=== PATIENT | male | born 1960 | race Caucasian/White ===

== ENCOUNTER 2016-08-11 13:09 | Emergency (ER) | payer SELFPAY ==
[~2016-08-11] VITALS: Ht 175.3 cm; Wt 59.4 kg
[~2016-08-11 13:09] MED LIST: HYDR-2666 PO; LISI-338 PO; NICO2GUM3 BC
[2016-08-11] MEDS ORDERED: FENTANYL PF 100 MCG/2 ML VIAL. IV PRN (14:45)
[2016-08-11] MEDS ORDERED: DIPHTH,PERTUSS(ACELL),TET TOX 0.5 ML DISP.SYRIN. VAX IM ONE (14:45)
--- NOTE | 2016-08-11 14:55 | ED.ADGEN ---
Past Medical History Past Medical History: CVA, Hypertension Past Surgical History: Other Additional Past Surgical Histo: left jaw x3 Alcohol Use: Heavy Drug Use: None Adult General Chief Complaint Chief Complaint: MECHANICAL FALL HPI HPI Patient is a 55 year old and, history of alcohol abuse, hypertension, CVA, who presents emergency Department with a complaint of right shoulder pain after a fall. Patient states that he was drinking last night, and he slept and slid down about 6 stairs, he states that he fell forward while walking up the stairs , and landed on his right shoulder. He denies loss of consciousness, denies striking his head, although he is noted to have an abrasion on the right side of his head, that he cannot otherwise explain. Patient denies any drugs, states that he drinks gin and other alcohol daily. He denies any other injuries or complaints. Noted to have significant swelling of the right upper extremity, unable to move at the shoulder. Denies any weakness numbness or tingling, any nausea or vomiting, any chest pain. No shortness of breath. No blurred vision. Patient placed in a c-collar per Nexus criteria, patient has odor of alcohol, and admits to drinking today. Review of Systems Review of Systems Constitutional: Denies fever or chills. [] Eyes: Denies change in visual acuity. [] HENT: Denies nasal congestion or sore throat. [] Respiratory: Denies cough or shortness of breath. [] Cardiovascular: Denies chest pain or edema. [] GI: Denies abdominal pain, nausea, vomiting, bloody stools or diarrhea. [] : Denies dysuria. [] Musculoskeletal: Denies back pain, complaining of right shoulder pain. Integument: Denies rash. [] Neurologic: Denies headache, focal weakness or sensory changes. [] Endocrine: Denies polyuria or polydipsia. [] Lymphatic: Denies swollen glands. [] Psychiatric: Denies depression or anxiety. [] Current Medications Current Medications Current Medications Medications (Trade) Dose Ordered Sig/Sandeep Start Time Stop Time Status Last Admin Dose Admin Diphtheria/ Tetanus/Acell Pertussis (Boostrix) 0.5 ml ONCE ONCE 08/11/16 14:45 08/11/16 14:46 DC 08/11/16 15:19 0.5 ML Fentanyl Citrate 25 mcg 25 mcg PRN Q15MIN PRN 1/8/17 14:45 08/12/16 14:44 08/11/16 15:18 25 MCG Multivitamins/ Minerals/Folic Acid/Thiamine HCl/ Dextrose/Sodium Chloride (Infuvite Adult/ Iv D5% - 1/2 NS) 1,011.2 ml @ 1,000 mls/ hr 1X ONCE 08/11/16 16:15 08/11/16 17:15 08/11/16 16:34 1,000 MLS/HR Allergies Allergies Allergies Coded Allergies Type Severity Reaction Last Updated Verified No Known Drug Allergies 12/14/14 No Physical Exam Physical Exam Constitutional: Well developed, well nourished, no acute distress, non-toxic appearance. Odor of alcohol. [] HENT: Normocephalic, patient with abrasion noted at the right parietal region, no hematoma, no hemotympanum, no septal hematoma,, bilateral external ears normal, oropharynx moist, no oral exudates, nose normal. [] Eyes: PERRLA, EOMI, conjunctiva normal, no discharge. [] Neck: Normal range of motion, no tenderness, supple, no stridor. [] Cardiovascular:Heart rate regular rhythm, no murmur, S1, S2, rubs or gallops. [] Lungs & Thorax: Bilateral breath sounds clear to auscultation, no wheezing, rhonchi, rales. No chest tenderness or crepitus.] Abdomen: Bowel sounds normal, soft, no tenderness, no rebound, rigidity, no guarding, no masses, no pulsatile masses. [] Skin: Warm, dry, no erythema, no rash. [] Back: No no midline or paraspinal tenderness, no step-offs or deformities, no CVA tenderness. [] Extremities: Patient with ecchymosis noted over the humeral head, and midshaft humerus, significant swelling and tissue tension noted, patient is tenderness at this area, unable to move at the elbow, is holding arm in a flexed position. No tenderness or difficulty with motion of the elbow, forearm, hand or wrist, no other abnormalities identified, no cyanosis, no clubbing, ROM intact, no edema. [] Neurologic: Alert and oriented X 3, normal motor function, normal sensory function, no focal deficits noted. [] Psychologic: Affect normal, judgement normal, mood normal. [] Current Patient Data Vital Signs Vital Signs Date Time Temp Pulse Resp B/P Pulse Ox O2 Delivery O2 Flow Rate FiO2 08/11/16 15:50 Room Air 08/11/16 15:18 15 98 08/11/16 13:54 97.4 90 115/63 97.4 Lab Values Laboratory Tests Test 08/11/16 14:55 White Blood Count 8.3x10^3/uL (4.0-11.0) Red Blood Count 3.78x10^6/uL (4.30-5.70) L Hemoglobin 12.4g/dL (13.0-17.5) L Hematocrit 37.2% (39.0-53.0) L Mean Corpuscular Volume 98fL (79-100) Mean Corpuscular Hemoglobin 33pg (25-35) Mean Corpuscular Hemoglobin Concent 33g/dL (31-37) Red Cell Distribution Width 15.6% (11.5-14.5) H Platelet Count 116x10^3/uL (140-400) L Neutrophils (%) (Auto) 79% (31-73) H Lymphocytes (%) (Auto) 9% (24-48) L Monocytes (%) (Auto) 11% (0-9) H Eosinophils (%) (Auto) 0% (0-3) Basophils (%) (Auto) 0% (0-3) Neutrophils # (Auto) 6.5x10^3uL (1.8-7.7) Lymphocytes # (Auto) 0.8x10^3/uL (1.0-4.8) L Monocytes # (Auto) 0.9x10^3/uL (0.0-1.1) Eosinophils # (Auto) 0.0x10^3/uL (0.0-0.7) Basophils # (Auto) 0.0x10^3/uL (0.0-0.2) Prothrombin Time 12.9SEC (11.7-14.0) Prothrombin Time INR 1.0 (0.8-1.1) PTT 27SEC (24-38) Sodium Level 134mmol/L (136-145) L Potassium Level 3.4mmol/L (3.5-5.1) L Chloride Level 98mmol/L (98-107) Carbon Dioxide Level 22mmol/L (21-32) Anion Gap 14 (6-14) Blood Urea Nitrogen 13mg/dL (8-26) Creatinine 0.7mg/dL (0.7-1.3) Estimated GFR (Cockcroft-Gault) 118.0 BUN/Creatinine Ratio 19 (6-20) Glucose Level 115mg/dL (70-99) H Calcium Level 8.2mg/dL (8.5-10.1) L Total Bilirubin 0.3mg/dL (0.2-1.0) Aspartate Amino Transferase (AST) 103U/L (15-37) H Alanine Aminotransferase (ALT) 68U/L (16-63) H Alkaline Phosphatase 70U/L (46-116) Total Protein 7.9g/dL (6.4-8.2) Albumin 3.5g/dL (3.4-5.0) Albumin/Globulin Ratio 0.8 (1.0-1.7) L Ethyl Alcohol Level 311mg/dL (0-10) H Laboratory Tests 08/11/16 14:55 Laboratory Tests 08/11/16 14:55 EKG EKG ECG: Rhythm strip: Sinus rhythm, heart rate 83 bpm, no ectopy. As interpreted by me. Radiology/Procedures Radiology/Procedures [] [address] [address] IMAGING REPORT Signed PATIENT: SANDI JOHNSON ACCOUNT: [id number] : 1960 LOCATION: ER AGE: 55 SEX: M EXAM STATUS: REG ER ORD. PHYSICIAN: CUTR PRIEST DO REASON: fall/pain PROCEDURE: HUMERUS RIGHT Right humerus 2 views. History: Fall last night, pain right humerus 2 views were taken of the right humerus. There is a comminuted fracture of the surgical neck and greater tuberosity of the right humerus. There is a cortex width of displacement. There is no dislocation at the shoulder. Impression: 1. Comminuted fracture proximal right humerus. DICTATED and SIGNED BY: ISMAEL TORREZ MD DATE: 08/11/16 1608 CC: CURT PRIEST DO; NO PCP ~ [address] [place] [address] IMAGING REPORT Signed PATIENT: SANDI JOHNSON ACCOUNT: [id number] : 1960 LOCATION: ER AGE: 55 SEX: M EXAM STATUS: REG ER ORD. PHYSICIAN: CURT PRIEST DO REASON: fall/EtOH PROCEDURE: HEAD AND CERVICAL SPINE WO CT brain without contrast, CT C-spine without contrast History: Fell yesterday, head injury, patient in c-collar, neck and shoulder pain CT brain CT scan of brain was done without contrast. There is no intracranial hemorrhage or subdural hematoma. Ventricles are normal in size. There is no mass or shift of the midline. An acute CVA is not identified. There is mucosal thickening in the left maxillary sinus. A skull fracture is not identified. Impression: 1. Left maxillary sinusitis. 2. No intracranial hemorrhage or mass or acute CVA noted. End impression CT cervical spine Axial CT images were obtained through the cervical spine. Sagittal and coronal reconstructed images were reviewed. There is hypertrophic change. Visualized portions of the lungs are clear. A focal disc protrusion is not identified. There is degenerative disc disease at C6-7. There is anterior spurring at C5-6. There is mild scoliosis which could be positional. Impression: 1. Hypertrophic spurring. 2. No acute fracture noted in the cervical spine. One or more of the following individualized dose reduction techniques were utilized for this examination: 1. Automated exposure control 2. Adjustment of the mA and/or kV according to patient size 3. Use of iterative reconstruction technique DICTATED and SIGNED BY: ISMAEL TORREZ MD DATE: 08/11/16 1516 CC: CURT PRIEST DO; NO PCP ~ Impressions: [facility] [address] [place] [address] IMAGING REPORT Signed PATIENT: SANDI JOHNSON ACCOUNT: [id number] : 1960 LOCATION: ER AGE: 55 SEX: M EXAM STATUS: REG ER ORD. PHYSICIAN: CURT PRIEST DO REASON: fall/pain PROCEDURE: PELVIS Pelvis one view. History: Pain after a fall Single view was taken of the pelvis. There is no pelvic fracture. Hips appear normal. There is no acute osseous abnormality. Impression: 1. No pelvic fracture noted. DICTATED and SIGNED BY: ISMAEL TORREZ MD DATE: 08/11/161606 CC: CURT PRIEST DO; NO PCP ~ [facility] [address] [place] [address] IMAGING REPORT Signed PATIENT: SANDI JOHNSON ACCOUNT: [id number] : 1960 LOCATION: ER AGE: 55 SEX: M EXAM STATUS: REG ER ORD. PHYSICIAN: CURT PRIEST DO REASON: fall/pain PROCEDURE: CHEST AP ONLY AP chest. History: Fall, right sided pain AP view was taken of the chest. Again noted is the fracture of the proximal humerus with inferior displacement of the humeral head relative to the glenoid. There is no pneumothorax or pleural effusion. There are old left rib fractures. An acute right rib fracture is not identified. Lungs are clear. Heart is normal in size. Impression: 1. Right humerus fracture. 2. Inferior displacement of the humeral head relative to the glenoid. 3. No definite rib fracture. 4. No pneumothorax or pleural effusion or acute infiltrates. DICTATED and SIGNED BY: ISMAEL TORREZ MD DATE: 08/11/161607 CC: CURT PRIEST DO; NO PCP ~ Course & Med Decision Making Course & Med Decision Making Pertinent Labs and Imaging studies reviewed. (See chart for details) Patient's head and C-spine did not reveal any evidence of acute abnormality. C- collar cleared in the ED without issue. Patient's alcohol level is 311, however he is clinically sober, answering questions appropriately, alert and oriented 4. X-ray of the right upper tremor he reveals a comminuted slightly displaced fracture of the humeral head and proximal shaft. Findings as above discussed with Dr. Zaldivar of orthopedics, he recommends the patient placed in an immobilizer, and follow up in his office in one week, at that time the shoulder will have "settled out", and he'll be able to determine if surgery will be required. I did discuss this finding with the patient. No other abnormality's were identified on his imaging, and he is ambulating without issue in the ED after placement of his shoulder immobilizer. He states that he currently does have a place to stay, will be able to get his medications, and has family who will be able to take him to his doctor's appointment. I discussed with him in detail the importance of follow-up, I also discussed with him the importance of using pain medications properly, and not mixing these medications with alcohol due to the increased risk of losing his balance and falling or causing other harm due to sedating effects. Patient voiced understanding and agreement. He was discharged home in stable condition with prescription for Percocet, to follow-up as stated, and to return to the ED for concerning symptoms as discussed. Dragon Disclaimer Dragon Disclaimer This electronic medical record was generated, in whole or in part, using a voice recognition dictation system. Departure Impression: Primary Impression: Humerus head fracture Additional Impressions: Alcohol intoxication Closed head injury Disposition: HOME, SELF-CARE Condition: STABLE Scripts Oxycodone/Apap 5-325 (Percocet 5-325 Mg Tablet)1 Each Tablet1 Tab PO QID PRN PAIN #20 TAB Prov:CURT PRIEST DO 08/11/16 Problem Qualifiers Primary Impression: Humerus head fracture Encounter type: initial encounter Fracture type: closed Laterality: right Qualified Code: S42.291A - Other displaced fracture of upper end of right humerus, initial encounter for closed fracture Additional Impressions: Alcohol intoxication Complication of substance-induced condition: uncomplicated Qualified Code: F10.120 - Alcohol abuse with intoxication, uncomplicated Closed head injury Encounter type: initial encounter Qualified Code: S09.90XA - Unspecified injury of head, initial encounter CURT PRIEST DO Aug 11, 2016 14:55
[2016-08-11 15:07] LABS: BASO % 0 % (0-3); EOS % 0 % (0-3); HEMATOCRIT 37.2 % (39.0-53.0); HEMOGLOBIN 12.4 g/dL (13.0-17.5); LYMPH # 0.8 x10^3/uL (1.0-4.8); LYMPH % 9 % (24-48); MEAN CORPUSCULAR HEMOGLOBIN 33 pg (25-35); MEAN CORPUSCULAR HGB CONC 33 g/dL (31-37); MEAN CORPUSCULAR VOLUME 98 fL (79-100); MONO % 11 % (0-9); NEUT % 79 % (31-73); PLATELET COUNT 116 x10^3/uL (140-400); RED BLOOD COUNT 3.78 x10^6/uL (4.30-5.70); RED CELL DISTRIBUTION WIDTH 15.6 % (11.5-14.5); WHITE BLOOD COUNT 8.3 x10^3/uL (4.0-11.0)
[2016-08-11 15:16] LABS: CALCIUM 8.2 mg/dL (8.5-10.1); CREATININE 0.7 mg/dL (0.7-1.3); POTASSIUM 3.4 mmol/L (3.5-5.1)
[2016-08-11 15:19] LABS: PROTHROMBIN TIME PATIENT 12.9 SEC (11.7-14.0)
[2016-08-11 15:22] LABS: ALBUMIN 3.5 g/dL (3.4-5.0); ALBUMIN/GLOBULIN RATIO 0.8 (1.0-1.7); TOTAL BILIRUBIN 0.3 mg/dL (0.2-1.0); TOTAL PROTEIN 7.9 g/dL (6.4-8.2)
--- NOTE | 2016-08-11 15:22 | RAD ---
CT brain without contrast, CT C-spine without contrast History: Fell yesterday, head injury, patient in c-collar, neck and shoulder pain CT brain CT scan of brain was done without contrast. There is no intracranial hemorrhage or subdural hematoma. Ventricles are normal in size. There is no mass or shift of the midline. An acute CVA is not identified. There is mucosal thickening in the left maxillary sinus. A skull fracture is not identified. Impression: 1. Left maxillary sinusitis. 2. No intracranial hemorrhage or mass or acute CVA noted. End impression CT cervical spine Axial CT images were obtained through the cervical spine. Sagittal and coronal reconstructed images were reviewed. There is hypertrophic change. Visualized portions of the lungs are clear. A focal disc protrusion is not identified. There is degenerative disc disease at C6-7. There is anterior spurring at C5-6. There is mild scoliosis which could be positional. Impression: 1. Hypertrophic spurring. 2. No acute fracture noted in the cervical spine. One or more of the following individualized dose reduction techniques were utilized for this examination: 1. Automated exposure control 2. Adjustment of the mA and/or kV according to patient size 3. Use of iterative reconstruction technique
--- NOTE | 2016-08-11 16:07 | RAD ---
Right humerus 2 views. History: Fall last night, pain right humerus 2 views were taken of the right humerus. There is a comminuted fracture of the surgical neck and greater tuberosity of the right humerus. There is a cortex width of displacement. There is no dislocation at the shoulder. Impression: 1. Comminuted fracture proximal right humerus.
--- NOTE | 2016-08-11 16:09 | RAD ---
Right shoulder 2 views. History: Shoulder pain after a fall 2 views were taken of the right humerus. There is a comminuted fracture of the proximal humerus. The fracture extends across the surgical neck. There is a comminuted fracture of the greater tuberosity. The humerus is subluxed inferiorly and anteriorly on the Y view possibly dislocated. CT could be of benefit. Impression: 1. Comminuted fracture right humerus. 2. Anterior inferior subluxation of the humeral head relative to the glenoid.
--- NOTE | 2016-08-11 16:10 | RAD ---
Pelvis one view. History: Pain after a fall Single view was taken of the pelvis. There is no pelvic fracture. Hips appear normal. There is no acute osseous abnormality. Impression: 1. No pelvic fracture noted.
--- NOTE | 2016-08-11 16:12 | RAD ---
AP chest. History: Fall, right sided pain AP view was taken of the chest. Again noted is the fracture of the proximal humerus with inferior displacement of the humeral head relative to the glenoid. There is no pneumothorax or pleural effusion. There are old left rib fractures. An acute right rib fracture is not identified. Lungs are clear. Heart is normal in size. Impression: 1. Right humerus fracture. 2. Inferior displacement of the humeral head relative to the glenoid. 3. No definite rib fracture. 4. No pneumothorax or pleural effusion or acute infiltrates.
[2016-08-11] MEDS ORDERED: MVI, ADULT NO.4 WITH VIT K 10 ML, FOLIC ACID 1 MG, THIAMINE 100 MG in IV DEXTROSE 5 %-0... IV ONE ×4 (16:15)
[2016-08-11] MEDS ORDERED: OXYC-323 PO (16:43)
[2016-08-11 17:00] VITALS: BP 134/92
== END 2016-08-11 19:46 | disposition home or self-care (01) ==
LOC: ER 13:09
DX: S42.291A Other displaced fracture of upper end of right humerus, initial encounter for closed fracture (principal); S09.90XA Unspecified injury of head, initial encounter; F10.129 Alcohol abuse with intoxication, unspecified; I10 Essential (primary) hypertension; Y90.9 Presence of alcohol in blood, level not specified; Z86.73 Personal history of transient ischemic attack (TIA), and cerebral infarction without residual deficits; W10.8XXA Fall (on) (from) other stairs and steps, initial encounter; Y93.89 Activity, other specified; Y92.89 Other specified places as the place of occurrence of the external cause; Y99.8 Other external cause status
CPT/HCPCS: 36415; 70450; 71010; 72125; 72170; 73030; 73060; 80053; 85027; 85610; 85730; 90471; 90715; 96365; 96375; 99285; G0480; J3010

== ENCOUNTER → 2016-12-20 | Outpatient (CLI) | payer OTHER ==
[~2016-12-20] MED LIST changes: +OXYC-323 PO
--- NOTE | 2016-12-20 12:18 | RAD ---
Lumbar spine, 3 views, 12/20/2016: History: Fall, back pain Comparison is made to a study from 04/29/2011. There is mild anterior wedging of the L1 vertebral body which was not present on the previous study. The other lumbar vertebral heights are well-maintained. The intervertebral disc spaces are well preserved. There are mild scattered marginal spurs. There is minimal aortic calcific plaquing. IMPRESSION: 1. L1 vertebral compression deformity which is new since 2010. 2. Mild scattered degenerative changes in the lumbar spine.
== END | disposition home or self-care (01) ==
LOC: RAD 09:08
PROVIDERS: ATTEND Surgery
DX: M47.896 Other spondylosis, lumbar region (principal)
CPT/HCPCS: 72100

== ENCOUNTER 2017-01-26 14:20 | Emergency (ER) | payer SELFPAY ==
[~2017-01-26] VITALS: Ht 175.3 cm; Wt 63.5 kg
[~2017-01-26 14:20] MED LIST changes: -HYDR-2666 PO; +HYDR-2758 PO; -NICO2GUM3 BC; +NICO2GUM42 BC
[2017-01-26] MEDS ORDERED: LORazepam 1 MG TABLET PO ONE (14:45)
[2017-01-26] MEDS ORDERED: MULTIVIT INFUSN,ADULT 4,VIT K 10 ML, FOLIC ACID 1 MG, THIAMINE 100 MG in IV DEXTROSE 5%... IV ONE (15:00)
[2017-01-26] MEDS ORDERED: CHLO25CA9 PO (16:22)
--- NOTE | 2017-01-26 16:23 | PHYS DOC ---
Past Medical History Past Medical History: CVA, Hypertension Past Surgical History: Other Additional Past Surgical Histo: left jaw x3 Alcohol Use: Heavy Drug Use: None Adult General Chief Complaint Chief Complaint: TREMORS HPI HPI 56-year-old gentleman presenting to the emergency department today with generalized tremors and an unsteady gait for the past 2 days. He reports not drinking alcohol 2 days ago. He chronically drank alcohol prior to that approximately a sixpack a day. One beer per day. He reports feeling like he has high blood pressure. He denies having history of alcohol withdrawal seizures. onset two days location generalized duration constant exacerbated by not drinking. Review of systems is negative for chest pain shortness of breath abdominal pain. He does have mild nausea without vomiting. All other review of systems is negative unless otherwise noted in history of present illness. ED course: 56-year-old male presenting to the emergency department with alcohol withdrawal. Patient was mildly tachycardic and mildly tremulous on examination. Otherwise normal neurologic exam. He was given a banana bag in the emergency department along with Ativan therapy which improved his symptoms. He is feeling better after this and able to walk with a steady gait. He was subsequent discharged home with chlordiazepoxide to follow-up with his doctor in the next 2 days. The patient was then discharged home in stable condition to follow up with their primary care physician over the next 2-3 days. They were to return if their symptoms worsened or if they were concerned for any reason. Face-to- face discharge instructions and return precautions were given. Patient's questions were answered to their satisfaction. Patient is comfortable plan. Review of Systems Review of Systems SEE ABOVE. Current Medications Current Medications Current Medications Medications (Trade) Dose Ordered Sig/Sandeep Start Time Stop Time Status Last Admin Dose Admin Lorazepam (Ativan) 1 mg 1X ONCE 01/26/17 14:45 01/26/17 14:46 DC 01/26/17 15:00 1 MG Multivitamins 10 ml/Folic Acid 1 mg/Thiamine HCl 100 mg/Dextrose/ Lactated Ringer's 1,011.2 ml @ 1,000 mls/ hr 1X ONCE 01/26/17 15:00 01/26/17 16:00 DC 01/26/17 15:17 1,000 MLS/HR Allergies Allergies Allergies Coded Allergies Type Severity Reaction Last Updated Verified No Known Drug Allergies 12/14/14 No Physical Exam Physical Exam Constitutional: Well developed, well nourished, mildly tremulous, non-toxic appearance. [] HENT: Normocephalic, atraumatic, bilateral external ears normal, oropharynx moist, no oral exudates, nose normal. [] Eyes: PERRLA, EOMI, conjunctiva normal, no discharge. [] Neck: Normal range of motion, no tenderness, supple, no stridor. [] Cardiovascular:Heart rate regular rhythm, no murmur [] Lungs & Thorax: Bilateral breath sounds clear to auscultation [] Abdomen: Bowel sounds normal, soft, no tenderness, no masses, no pulsatile masses. [] Skin: Warm, dry, no erythema, no rash. [] Back: No tenderness, no CVA tenderness. [] Extremities: No tenderness, no cyanosis, no clubbing, ROM intact, no edema. [] Neurologic: Mental status: Awake oriented and alert x3 Cranial nerves: Extraocular movements intact, eyebrows karime bilaterally smile symmetric, uvula elevation, shoulder shrug intact, tongue protrusion normal DTRs: 2+ Sensation: equal and normal in all extremities Strength: 5/5 in upper and lower extremities bilaterally Psychologic: Affect normal, judgement normal, mood normal. [] Current Patient Data Vital Signs Vital Signs Date Time Temp Pulse Resp B/P (MAP) Pulse Ox O2 Delivery O2 Flow Rate FiO2 01/26/17 14:20 98.2 102 20 171/113 (132) 99 Room Air 98.2 Lab Values Laboratory Tests Test 01/26/17 14:31 Glucose (Fingerstick) 111 mg/dL (70-99) H EKG EKG [] Radiology/Procedures Radiology/Procedures [] Course & Med Decision Making Course & Med Decision Making Pertinent Labs and Imaging studies reviewed. (See chart for details) [] Dragon Disclaimer Dragon Disclaimer This electronic medical record was generated, in whole or in part, using a voice recognition dictation system. Departure Departure Impression: Primary Impression: Alcohol withdrawal Disposition: 01 HOME, SELF-CARE Condition: STABLE Referrals: NO PCP (PCP) SEBASTIAN RAMIREZ MD Patient Instructions: Alcohol Withdrawal Additional Instructions: Thank you for allowing us to participate in your care today. Followup with your primary care physician in 3 days if your symptoms do not improve. Call your Primary Doctor tomorrow and inform them of your visit today. If you do not have a primary care provider you can ask for a list of our primary care providers. Return to the emergency department you have any new or concerning findings. This should be evaluated by the primary care physician and any necessary consulting services for continued management within a few days after discharge. Return to emergency room if you have any new or concerning symptoms including but not limited to fever, chills, nausea, vomiting, intractable pain, any new rashes, chest pain, shortness of air, uncontrolled bleeding, difficulty breathing, and/or vision loss. You may have been prescribed medication that can change in your level of thinking and ability to operate machinery. These medications include hydrocodone and Ativan. Also, Benadryl has been known to do this as well. Be sure to check with your pharmacist and ask if the medications you've prescribed can affect your level of consciousness. I recommend not operating heavy machinery or driving while on medication such as these. Scripts Chlordiazepoxide Hcl (CHLORDIAZEPOXIDE HCL) 25 Mg Capsule 25 MG PO TID, #9 CAP Prov: MITCHEL ANDERSEN MD 01/26/17 MITCHEL ANDERSEN MD Jan 26, 2017 16:23
--- NOTE | 2017-01-26 16:27 | EKG ---
[facility] [address] [place] [address] Test Date: 2017-01-26 Test Time: 14:30:50 Pat Name: SANDI JOHNSON Department: Room: Gender: M Night Time Nanny: [id number] : 1960 Requested By: MITCHEL ANDERSEN Order Number: [id number] Reading MD: Measurements Intervals [place] Rate: 97 P: 70 LA: 164 QRS: 100 QRSD: 94 T: 78 QT: 382 QTc: 490 Interpretive Statements SINUS RHYTHM LEFT ATRIAL ABNORMALITY RIGHTWARD AXIS QRS(T) CONTOUR ABNORMALITY CANNOT RULE OUT ANTEROSEPTAL MYOCARDIAL DAMAGE PROLONGED QT RI6.01 Unconfirmed report No previous ECG available for comparison
[2017-01-26 16:30] VITALS: BP 184/107
== END 2017-01-26 16:35 | disposition home or self-care (01) ==
LOC: ER 14:20
DX: F10.239 Alcohol dependence with withdrawal, unspecified (principal); I10 Essential (primary) hypertension; Y90.9 Presence of alcohol in blood, level not specified; Z86.73 Personal history of transient ischemic attack (TIA), and cerebral infarction without residual deficits
CPT/HCPCS: 82962; 93005; 96365; 99284-25